=== PATIENT | female | born 1990 | race Caucasian/White ===

== ENCOUNTER 2016-05-28 09:56 | Emergency (ER) | payer MEDICAID, OTHER ==
[~2016-05-28] VITALS: Ht 160 cm; Wt 63.5 kg
[2016-05-28] MEDS ORDERED: NS IV 1000 ML 1,000 ML IV ONE (10:10)
[2016-05-28 10:43] LABS: BASOPHILS % (AUTO) 0 % (0-10); EOSINOPHILS # (AUTO) 0.1 10^3/uL (0.0-0.3); EOSINOPHILS % (AUTO) 1 % (0-10); LYMPHOCYTES # (AUTO) 1.7 X 10^3 (1.0-4.0); LYMPHOCYTES % (AUTO) 25 % (12-44); MEAN CORPUSCULAR HEMOGLOBIN 32 PG (25-34); MEAN CORPUSCULAR HGB CONC 35 G/DL (32-36); MEAN CORPUSCULAR VOLUME 90 FL (80-99); MEAN PLATELET VOLUME 10.3 FL (7.4-10.4); MONOCYTES # (AUTO) 0.5 X 10^3 (0.0-1.0); MONOCYTES % (AUTO) 7 % (0-12); NEUTROPHILS # (AUTO) 4.7 X 10^3 (1.8-7.8); NEUTROPHILS % (AUTO) 67 % (42-75); PLATELET COUNT 272 10^3/uL (130-400); RED BLOOD COUNT 4.32 10^6/uL (4.35-5.85); RED CELL DISTRIBUTION WIDTH 12.4 % (10.0-14.5)
--- NOTE | 2016-05-28 10:52 | Diagnostic Imaging Report ---
PROCEDURE: CT head without contrast. TECHNIQUE: Multiple contiguous axial images were obtained through the brain without the use of intravenous contrast. INDICATION: Seizure last night, did not hit head COMPARISON STUDIES: CT head from 2006. FINDINGS: Noncontrast CT scanning of the head demonstrates no mass effect, midline shift, hemorrhage or extra-axial fluid collections. The hector-white matter differentiation is normal. Ventricles, cortical sulci, and basilar cisterns appear normal. Bone windows demonstrate normal aeration of the visualized portions of the paranasal sinuses and mastoid air cells. No fractures are seen. IMPRESSION: Normal CT scan of the head. Dictated by: Dictated on workstation # [id number]
[2016-05-28 11:07] LABS: ALANINE AMINOTRANSFERASE 9 U/L (0-55); ALBUMIN 4.2 G/DL (3.2-4.5); ANION GAP 6 MMOL/L (5-14); ASPARTATE AMINO TRANSFERASE 13 U/L (5-34); BLOOD UREA NITROGEN 9 MG/DL (7-18); BUN/CREATININE RATIO 11; CARBON DIOXIDE 26 MMOL/L (21-32); CHLORIDE 108 MMOL/L (98-107); CREATINE KINASE 49 U/L (29-168); CREATININE SERUM 0.81 MG/DL (0.60-1.30); GFR ESTIMATED > 60; GLUCOSE 99 MG/DL (70-105); POTASSIUM 3.9 MMOL/L (3.6-5.0); SODIUM 140 MMOL/L (135-145); TOTAL PROTEIN 6.6 G/DL (6.4-8.2); hs C REACTIVE PROTEIN 0.04 MG/DL (0.00-0.50)
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
[2016-05-28] MEDS ORDERED: KETOROLAC 30 MG/ML VIAL IVP STA (11:11)
[2016-05-28 11:12] LABS: BILIRUBIN,URINE NEGATIVE (NEGATIVE); KETONES,URINE NEGATIVE (NEGATIVE); LEUKOCYTE ESTERASE ,URINE NEGATIVE (NEGATIVE); NITRITE,URINE NEGATIVE (NEGATIVE); PH,URINE 6.5 (5-9); PROTEIN,URINE NEGATIVE (NEGATIVE); UROBILINOGEN,URINE NORMAL (NORMAL)
[2016-05-28 11:26] LABS: THYROID STIMULATING HORMONE 1.17 UIU/ML (0.35-4.94)
[2016-05-28 11:28] LABS: WBC,URINE 0-2 /HPF
[2016-05-28 12:30] VITALS: BP 127/75
--- OUTSIDE RECORDS SUMMARY | 2016-06-21 05:53 | XMS REPORT | Referral Summary ---
Author Author [facility] Organization [facility] Address Unknown Phone Unavailable Care Team Providers Care Foam Molder Name Role Phone Jd Mondragon PCP Encounter [facility] [id number] Date(s): 01/27/15 - 01/27/15 [facility] [address] [place] [address] Discharge Diagnosis: Abscess of labia Discharge Disposition: 01-Home or Self Care Attending Physician: Mike Mackay MD Admitting Physician: Mike Mackay MD Vital Signs Most recent to 1 oldest [Reference Range]: Temperature Oral 36.7 degC [35.8-37.3 degC] (01/27/15 5:53 PM) Peripheral Pulse 72 bpm Rate [60-100 bpm] (01/27/15 8:03 PM) Respiratory Rate 18 br/min [14-20 br/min] (01/27/15 8:03 PM) Blood Pressure 107/72 mmHg [90-140/60-90 mmHg] (01/27/15 8:03 PM) SpO2 98 % (01/27/15 8:03 PM) Problem List Condition Effective Dates Status Health Status Informant Anxiety(Confirmed) Active patient Depression(Confirmed Active patient ) Hypothyroidism(Confi Active patient rmed) Tobacco Active patient user(Confirmed) Allergies, Adverse Reactions, Alerts No Known Medication Allergies Medications Bactrim DS 800 mg-160 mg oral tablet 1 tabs, Oral, BID, X 10 days, # 20 tabs, 0 Refill(s) Start Date: 01/27/15 Stop Date: 02/06/15 Status: Ordered ibuprofen 800 mg oral tablet 800 mg 1 tabs, Oral, TID, as needed for pain, # 30 tabs, 0 Refill(s) Start Date: 01/27/15 Status: Ordered levothyroxine Daily, 0 Refill(s) Start Date: 01/27/15 Status: Ordered [place] 5 mg-325 mg oral tablet 1 tabs, Oral, q6hr, as needed for pain, # 12 tabs, 0 Refill(s) Start Date: 01/27/15 Stop Date: 01/30/15 Status: Ordered sertraline Oral, Daily, 0 Refill(s) Start Date: 01/27/15 Status: Ordered Results No data available for this section Immunizations Vaccine Date Refusal Reason influenza virus vaccine, live 04/05/11 influenza virus vaccine, live 02/26/10 Procedures Procedure Date Related Diagnosis Body Site Appendectomy section1 1x4 Social History Social History Type Response Smoking Status Current every day smoker Assessment and Plan No data available for this section
--- OUTSIDE RECORDS SUMMARY | 2016-06-21 05:53 | XMS REPORT | Continuity of Care Document ---
Author Author [facility] Address Unknown Phone Unavailable Allergies Medications Problems Procedures Code Description Performed By Performed On [id number] CHLAMYDIA/GC AMPLIFICATION 12/21/2014 92440 TRICHOMONAS 12/21 88908 RAPID STREP (GROUP A) 12/21/2014 39651 BV BLUE 2014 03402 LIQUID PAP WITH RFX HPV 12/24/2014 Results Encounters [facility] No. Visit Date/Time Discharge Status Pt. Type Provider Facility Loc./Unit Complaint [id number] 12/19/2014 12:57:00 12/19/2014 23: 59:59 [facility] [id number] 12/19/2014 12:57:00 12/19/2014 23: 59:59 [facility]
--- OUTSIDE RECORDS SUMMARY | 2016-06-21 05:54 | XMS REPORT | Referral Summary ---
Author Author [facility] Organization [facility] Address Unknown Phone Unavailable Care Team Providers Care Eligibility Counselor Name Role Phone Jd Mondragon PCP Encounter [facility] Date(s): 06/29/15 - 06/29/15 [facility] [address], [place] [address] Discharge Diagnosis: Lymphadenopathy Discharge Diagnosis: Acute viral syndrome Discharge Disposition: 01-Home or Self Care Attending Physician: Dayron Narvaez MD Admitting Physician: Dayron Narvaez MD Vital Signs Most recent to 1 oldest [Reference Range]: Temperature Oral 36.9 degC [35.8-37.3 degC] (06/29/15 2:06 AM) Peripheral Pulse 68 bpm Rate [60-100 bpm] (06/29/15 3:16 AM) Respiratory Rate 16 br/min [14-20 br/min] (06/29/15 3:16 AM) Blood Pressure 105/74 mmHg [90-140/60-90 mmHg] (06/29/15 3:16 AM) SpO2 99 % (06/29/15 3:16 AM) Problem List Condition Effective Dates Status Health Status Informant Anxiety(Confirmed) Active patient Depression(Confirmed Active patient ) Hypothyroidism(Confi Active patient rmed) Tobacco Active patient user(Confirmed) Allergies, Adverse Reactions, Alerts Substance Reaction Severity Status clindamycin Active penicillin Active Medications ibuprofen 800 mg oral tablet 800 mg 1 tabs, Oral, TID, as needed for pain, # 30 tabs, 0 Refill(s) Start Date: 01/27/15 Status: Ordered levothyroxine Daily, 0 Refill(s) Start Date: 01/27/15 Status: Ordered levothyroxine 50 mcg (0.05 mg) oral tablet 50 mcg 1 tabs, Oral, Daily, # 7 tabs, 0 Refill(s) Start Date: 06/29/15 Stop Date: 07/06/15 Status: Ordered Mobic 15 mg oral tablet 15 mg 1 tabs, Oral, Daily, # 14 tabs, 0 Refill(s) Start Date: 06/29/15 Stop Date: 07/13/15 Status: Ordered sertraline Oral, Daily, 0 Refill(s) Start Date: 01/27/15 Status: Ordered tetracaine 0.5% ophthalmic solution 1 drops, Ear-Both, Once, # 2 mL, 0 Refill(s) Start Date: 06/29/15 Status: Ordered Results No data available for this section Immunizations Vaccine Date Refusal Reason influenza virus vaccine, live 04/05/11 influenza virus vaccine, live 02/26/10 Procedures Procedure Date Related Diagnosis Body Site Appendectomy section1 1x4 Social History Social History Type Response Smoking Status Current every day smoker Assessment and Plan No data available for this section
== END 2016-05-28 12:30 | disposition home or self-care (01) ==
LOC: ER 10:02
DX: R55 Syncope and collapse (principal); E03.9 Hypothyroidism, unspecified; F17.210 Nicotine dependence, cigarettes, uncomplicated
CPT/HCPCS: 36415; 70450; 80053; 80306; 81000; 82550; 84443; 85025; 86141; 86308; 96374